=== PATIENT | female | born 1950 | race Caucasian/White ===

== ENCOUNTER 2025-03-04 20:26 | Inpatient (IN) | payer MEDICARE, OTHER, SELFPAY ==
[2025-03-04] VITALS (8 sets, daily range): BP systolic 117–159; BP diastolic 67–89; BMI 25.0
[2025-03-04 18:59] LABS: Glucose - Point of Care 491 mg/dl (70-99)
[2025-03-04] MEDS: NSS 1000 IV (19:14)
--- NOTE | 2025-03-04 19:17 | ED.GENMED ---
History of Present Illness
General
Chief Complaint: Blood Sugar Problem
Source: patient
Exam Limitations: none
Time Seen by Provider: 03/04/25 19:04
Nursing documentation reviewed up to this point in time: agreed with
History of Present Illness
History of Present Illness:
74 yo female with no significant PMHX presents with excessive thirst and concerns about high blood glucose levels. She reports that her symptoms started with fatigue, slowly around Easter and progressively worsened. The patient notes being 'very,
very thirsty' and believes her blood glucose levels are 'off the charts,' based on recent lab work initiated by a nurse practitioner named Kelsey, a friend of the family. The patient also reports feeling breathless with exertion but denies
experiencing chest pain or trouble breathing at rest. She has not experienced any nausea or vomiting. She reports constipation for the past few days, with the last bowel movement occurring approximately three days ago. She usually experiences bowel
movements daily. Denies abdominal pain.
She has had polydipsia and polyuria.
Past History
Past History
ED Past Medical History: None
ED Past Surgical History: Appendectomy
Social History
Tobacco: Non-smoker
Alcohol: None
Personal: Single
Living: with family
Review of Systems
Review of Systems
Allergies reviewed?: Yes
All Other Systems: ROS reviewed and negative except as documented in HPI and ROS
Constitutional: Reports fatigue; Denies fever
Respiratory: Reports other (gets short of breath with exertion); Denies cough
Cardiac: Denies chest pain
ABD/GI: Reports constipated; Denies abdominal pain, nausea, vomiting or diarrhea
: Reports frequency; Denies dysuria
Musculoskeletal: Reports no symptoms
Skin: Reports no symptoms
Neurological: Reports no symptoms
Endocrine: Reports polyuria and polydipsia
Phy Exam
Physical Exam
Physical Exam:
GENERAL: No acute distress. A&Ox3.
CONSTITUTIONAL: Afebrile.
EYES: clear, conjunctivae normal
ENMT: moist mucus membranes, Pharynx nl
RESPIRATORY: Regular respirations, nonlabored, lungs clear.
CARDIOVASCULAR: Regular rate and rhythm, no murmurs, no rubs.
GI: Soft, nontender, normal BS
MUSCULOSKELETAL: Moves with ease. Well perfused.
SKIN: Warm, dry, pink
PSYCH: Normal mood and affect. Well kept, interactive and appropriate
NEUROLOGIC: Awake, alert and oriented. No focal neurological deficits
Course
Orders/Labs/Results
Orders:
Orders
03/04/25 Breakfast
NPO
Allow oral meds: Yes
Allow clear liquids: Sips of Clears
03/04/25 19:05
Bedside Glucose- Treatment Q1H
IV Insert/Care/Rem.- Treatment PRN
0.9% Sodium Chloride 1000 ml [Nss] 1,000 ml IV BOLUS
03/04/25 19:11
Urinalysis Urgent
Date Specimen was Collected: 03/04/25
Time Specimen was Collected: 19:08
Urine Microscopic Urgent
Date Specimen was Collected: 03/04/25
Time Specimen was Collected: 19:08
03/04/25 19:12
B-Hydroxybutyrate Urgent
Basic Metabolic Panel Q2H
Complete Blood Count/With Diff Urgent
Glycohemoglobin (HgbA1c) Urgent
03/04/25 19:15
Bedside Glucose- Treatment Q1H
IV Insert/Care/Rem.- Treatment PRN
03/04/25 19:20
Venous Blood Gas Urgent
%Oxygen/Room Air: Room air
03/04/25 19:58
Potassium Chloride [KCl] 40 meq PO NOW STA
03/04/25 19:59
Bedside Glucose- Treatment Q1H
03/04/25 20:00
IV Insert/Care/Rem.- Treatment PRN
03/04/25 20:01
Electrocardiogram (*1) Urgent
Reason for Study: Other
Other Reason for Exam: New onset diabetes, KCL IV and Insulin
EKG- Treatment ONCE
03/04/25 20:03
Potassium Chloride [KCl] 40 meq 0.9% Sodium Chloride 250 ml [Nss] 250 ml IV NOW
Reg Insulin 100 Units/100 ml [Novolin R Insulin Infusion] 100 units in 100 ml IV NOW
03/04/25 20:08
CefTRIAXone [Rocephin] 1,000 mg IV NOW STA
03/04/25 20:11
Admit/Transfer Patient As Directed
Co-Sign Provider:
Level of Care: Inpatient admission
Assign to:: ICU
Physician / Group: Earnest
Diagnosis: DKA
Reason for Hospitalization: DKA
Expected length of stay greater than two midnights?: Yes
ELOS- Estimated Length of Stay in days: 2
I certify the patient meets the requirements for IP care: Yes
PRN Pain Medication Management As Directed
May give lesser potent ordered pain med per pt: Yes
preference::
Protocol:: Medication orders for pain may be administered in a
manner that supports deferring to patient preference
when the pt is:
- Requesting an ordered lesser potent pain medication.
Least to most potent pain medications are defined
as: acetaminophen < NSAID < tramadol < opioids
(morphine, oxycodone, hydromorphone).
- Requesting a lesser dose of the same medication IF
ORDERED.
- Requesting a less intrusive route of administration
if both routes are prescribed by the provider (PO <
IV).
03/04/25 20:12
Code Status As Directed
Resuscitation Status: Full Code
03/04/25 20:27
Glucose Stat
03/04/25 21:09
Acetaminophen [Tylenol] 650 mg PO Q4HPRN PRN
KCl 20 Meq/0.9%Sodchl 1000 ml [NSS with KCL 20 MEQ] 20 meq in 1,000 ml IV 150 mls/hr
Ondansetron Injectable [Zofran] 4 mg IV Q6HPRN PRN
Reg Insulin 100 Units/100 ml [Novolin R Insulin Infusion] 100 units in 100 ml IV PER PROTOCOL
Currently infusing. Continue current dose and titrate:: Yes
03/04/25 21:09
Activity As Directed
Activity Level: Ambulate
With Assistance
Bedside Glucose Monitoring As Directed
Frequency: Q1H
EKG with chest pain [ECG as needed] As Directed
ECG as needed for:: Chest Pain
I/O [Intake/ Output] As Directed
Frequency: Per unit guidelines
Notify MD As Directed
Notify physician if: Nurse to contact provider when glucose reaches 250 to obtain orders for D5 0.45 NaCl
Vital Signs As Directed
Frequency: Per unit guidelines
Weight As Directed
Frequency: Daily
Oxygen Therapy [O2 Therapy] [RESP] Routine
Titrate/Wean O2 to maintain O2 sat greater than (%): 94
DX Deep Vein Thrombosis Video Routine
03/05/25 00:00
Basic Metabolic Panel Q4
03/05/25 04:00
Basic Metabolic Panel Q4
03/05/25 06:00
Complete Blood Count/No Diff IN AM
03/05/25 08:00
Basic Metabolic Panel Q4
03/05/25 12:00
Basic Metabolic Panel Q4
03/05/25 16:00
Basic Metabolic Panel Q4
03/05/25 18:00
Enoxaparin Sodium [Lovenox] 40 mg SC QPM
03/05/25 20:00
Basic Metabolic Panel Q4
Abnormal Lab Results
03/04/25 03/04/25 03/04/25
18:46 19:11 19:12
MCH 31.5 H pg
(27.0-31.0)
MPV 11.5 H fL
(7.4-10.4)
Abs Immat Gran (auto) 0.1 H 10^3/uL
(0-0.05)
Absolute Lymphs (auto) 1.1 L 10^3/uL
(1.2-3.4)
Absolute Monos (auto) 0.7 H 10^3/uL
(0.1-0.6)
Immature Gran % 0.8 H %
(0-0.5)
Lymphocytes % 17.6 L %
(20.5-51.1)
Monocytes % 10.6 H %
(1.7-9.3)
VBG pH
VBG pCO2
VBG HCO3
Sodium 132 L mmol/L
(135-145)
Carbon Dioxide 11 L* mmol/L
(22-30)
BUN 5 L mg/dl
(7-17)
Creatinine 0.5 L mg/dL
(0.6-1.0)
Glucose 501 H* mg/dl
(70-99)
Urine Ketones 3+ A
(Negative)
Urine Occult Blood 1+ A
(Negative)
Ur Leukocyte Esterase 3+ A
(Negative)
Urine WBC 70-80 A /HPF
(0-5)
Urine Bacteria Moderate A
(Negative)
Urine Glucose 4+ A
(Negative)
B-Hydroxybutyrate 6.20 H mmol/L
(0.02-0.27)
POC Glucose 491 H* mg/dl
(70-99)
03/04/25 03/04/25
19:20 20:21
MCH
MPV
Abs Immat Gran (auto)
Absolute Lymphs (auto)
Absolute Monos (auto)
Immature Gran %
Lymphocytes %
Monocytes %
VBG pH 7.21 L
(7.32-7.43)
VBG pCO2 31 L mmHg
(35-48)
VBG HCO3 12.4 L mmol/L
(22-27)
Sodium
Carbon Dioxide
BUN
Creatinine
Glucose
Urine Ketones
Urine Occult Blood
Ur Leukocyte Esterase
Urine WBC
Urine Bacteria
Urine Glucose
B-Hydroxybutyrate
POC Glucose 437 H mg/dl
(70-99)
03/04/25 19:12
03/04/25 20:00
Vital Signs
Initial and Last Documented VS:
Initial Vital Signs
Temp Pulse Resp BP Pulse Ox
98.7 F 79 16 159/89 99
03/04/25 18:44 03/04/25 18:44 03/04/25 18:44 03/04/25 18:44 03/04/25 18:44
Last Documented Vital Signs
Temp Pulse Resp BP Pulse Ox
98.8 F 72 17 121/74 96
03/04/25 23:04 03/04/25 23:45 03/04/25 23:45 03/04/25 23:00 03/04/25 23:45
Reptile Farmer consulted with Physician
Reptile Farmer consulted with physician?: Yes
Name of Physician Consulted: Sarah
MDM/Problems Addressed
Differential Diagnosis Includes:
The Differential Diagnosis includes, in no particular order and is not limited to:
1. Diabetes Mellitus
2. Hyperosmolar Hyperglycemic State
3. Diabetes Insipidus
4. Dehydration
5. Urinary tract infection
6. Medication-induced hyperglycemia
7. Hyperthyroidism
8. Adrenal insufficiency
9. Chronic Kidney Disease
10. Pancreatitis
MDM/Problems Addressed:
74 yo female with no significant PMHX presents with excessive thirst and concerns about high blood glucose levels. She reports that her symptoms started with fatigue, slowly around Easter and progressively worsened. The patient notes being 'very,
very thirsty' and believes her blood glucose levels are 'off the charts,' based on recent lab work initiated by a nurse practitioner named Kelsey, a friend of the family. The patient also reports feeling breathless with exertion but denies
experiencing chest pain or trouble breathing at rest. She has not experienced any nausea or vomiting. She reports constipation for the past few days, with the last bowel movement occurring approximately three days ago. She usually experiences bowel
movements daily. Denies abdominal pain.
She has had polydipsia and polyuria.
Afebrile, NAD
Plan:
1. Administer intravenous fluids to address dehydration.
2. Monitor serum potassium levels before administering insulin.
3. Once potassium levels are confirmed to be normal, initiate insulin therapy to manage hyperglycemia.
4. Check VBG
7:40 p.m.
CBC with no clinically significant abnormality
VBG: pH 7.21 CO2 31, bicarb 12.4
Bicarb 11
Diagnosis: DKA
8:10 p.m.
U/A with 70-80 WBCs 3+leukocytes Rocephin ordered. Culture pending
Hospitalist notified of admission
Pt informed of results and plan.
Critical care statement: A total of 40 minutes of critical care time was provided for this patient. This includes management of unstable vital signs, evaluation of the patient at bedside, reviewing the patient's pertinent medical records, discussion
with consultants, review of old EKGs and review of pertinent medical records. This time with separate from time utilized to perform the aforementioned documented procedures
*Pulse Oximetry
SaO2: 100
Oxygen Mode of Delivery: Room air
Patient hypoxic: not evaluated
*Critical Care Note
Total Time (30-74mins, 75-104mins- exclusive of procedures): Not Applicable
ED Attending Note
-
Portions of this chart may have been created with voice recognition software.� Occasional wrong word or��sound alike� substitutions may have occurred due to the inherent limitations of voice recognition software.
Discharge Plan
Departure
Patient Disposition: Admit
Date of Disposition: 03/04/25
Time of Disposition: 20:02
Presentation/result/management discussed w/ accepting MD/DO: Hospitalist
Condition: Fair
Discharge Problem:
New onset type 2 diabetes mellitus, DKA (diabetic ketoacidosis)
Interventions
Interventions:
*Risk Screen - Suicide Last Done: 03/04/25 18:44
*General Assessment Last Done: 03/04/25 18:56
*Neglect/Abuse Screening Last Done: 03/04/25 18:44
*ED- Fall Risk Assessment Last Done: 03/04/25 18:56
*ED COVID-19 Vaccine History Last Done: 03/04/25 18:56
*Nursing Disposition Last Done: 03/04/25 21:19
ED- Neurological Assessment Last Done: 03/04/25 18:56
Discharge Date and Time
Discharge Date/Time: 03/04/25 21:20
[2025-03-04 19:19] LABS: Hematocrit 39.2 % (37.0-47.0); Hemoglobin 13.8 g/dL (12.0-16.0); Mean Corp Hgb Conc. 35.2 g/dL (33.0-37.0); Mean Corpuscular Volume 89.5 fL (81.0-99.0); Nucleated Red Blood Cells % 0 %; Platelet Count 212 10^3/uL (130-400); Red Cell Dist. Width 13.7 % (11.5-14.5)
[2025-03-04 19:25] LABS: Urine Character Clear (Clear)
[2025-03-04 19:33] LABS: Venous Blood Gas B.E. -14.2 mmol/L (-4 to +4); Venous Blood Gas O2 Sat % 76.7 %
[2025-03-04 19:41] LABS: Blood Urea Nitrogen 5 mg/dl (7-17); Calcium 9.5 mg/dl (8.4-10.2); Carbon Dioxide 11 mmol/L (22-30); Chloride 103 mmol/L (98-107); Estimated Creatinine Clearance 71 ml/min; Glucose 501 mg/dl (70-99); Potassium 3.7 mmol/L (3.5-5.1); Sodium 132 mmol/L (135-145); eGFR > 60.00
[2025-03-04 19:41] LABS: Urine Red Blood Cell 0-2 /HPF (0-2); Urine Squamous Cell 16-20 /LPF (Few); Urine White Cell 70-80 /HPF (0-5)
[2025-03-04 20:23] LABS: Glucose - Point of Care 437 mg/dl (70-99)
[2025-03-04] MEDS: KCL 40 MEQ PO (20:26)
[2025-03-04] MEDS: KCL 270 MEQ IV (20:28)
--- NOTE | 2025-03-04 20:28 | HPS.HSE ---
Family Physician
-
Family Physician: Pranav Lopez
Chief Complaint
-
Weight Loss, Fatigue, Abnormal Labs
History of Present Illness
Patient is a 74y F with no known PMH who presents to ED for evaluation of weight loss, fatigue and abnormal labs. Patient states that she has felt 'lousy' for about 2-3 months. She reports polyuria, polydipsia, weight loss and fatigue. Patient
spoke with a friend who is a medical provider and they provided her a Rx for outpatient labs. Those labs resulted today and were markedly abnormal and patient was advised to present to the ED for further evaluation. At the time of my examination
she complains of mild headache and dry mouth. She denies any chest pain, dyspnea, abdominal pain or N/V.
Medical History
Past Medical History
Past Medical History: Reports None
Past Surgical History: Reports None
Social History
Tobacco: Non-smoker
Alcohol: None
Drug: None
Family History
Family History: Not pertinent
Allergies / Home Medications
Allergies reflects when Allergies were last updated in [facility].
Home Medications with original date entered in [facility]
Allergy/Medication List:
Allergies
Allergy/AdvReac Type Severity Reaction Status Date / Time
prednisone Allergy Unknown Verified 03/04/25 19:01
Home Medications
multivitamin with minerals-folic acid 120 mcg chewable tablet (Vitafusion Women's Multi) 2 tab PO DAILYPRN PRN vitamin 03/04/25
Review of Systems
-
History Source: Patient
A 12 point ROS was completed and negative except as noted: Yes
Constitutional: Reports Weight Loss and Fatigue; Denies Fever or Chills
EENT: Denies Sore Throat
Respiratory: Denies Cough or Trouble Breathing
Cardiac: Denies Chest Pain or Palpitations
Abdomen/GI: Denies Abdominal Pain, Nausea, Vomiting or Diarrhea
: Reports Frequency; Denies Dysuria or Flank Pain
Musculoskeletal: Denies Joint Pain or Edema
Neurological: Reports Headache; Denies Dizzy
Endocrine: Reports Polyuria and Polydipsia
Psych: Denies Depression or Anxiety
Physical Exam
Vital Signs
Vital Signs
Temp Pulse Resp BP Pulse Ox
98.7 F 76 19 152/78 100
03/04/25 18:44 03/04/25 19:15 03/04/25 19:15 03/04/25 19:00 03/04/25 19:24
Physical Exam
General: Other (74y F in no acute distress.)
HEENT: PERRLA and Other (Dry MM.)
Respiratory: Clear; No Wheezes, Rales or Rhonchi
Cardiac: S1/S2 and Regular Rhythm; No Murmur
GI: Soft, Non Tender, Non Distended and Normal Bowel Sounds
Musculoskeletal: No Clubbing, No Cyanosis and No Edema
Neuro: AO x 3
Laboratory Results
-
03/04/25 19:12
Impression/Plan
-
A/P: Patient is an 74y F with no known PMH who presents to ED for evaluation of weight loss, fatigue and abnormal labs.
DKA
New Diagnosis of DM-II
Hypokalemia
- Admit to ICU for further evaluation and treatment.
- Initial labs with glucose = 501, anion gap = 18 (23 on outpatient labs), pH = 7.21.
- IV insulin infusion. IVFs.
- Follow glucose hourly and adjust fluids / insulin as needed.
- Follow labs q 4 hours and transition to subcut insulin once anion gap is normalized.
- Replace potassium (PO and IV given in the ED). Continue IVFs with potassium.
- Follow labs / lytes and provide replacement as needed.
- Eventual diabetic teaching, nutrition, etc prior to discharge.
- A1C on outpatient labs was > 15.5.
- TFTs on outpatient labs were unremarkable.
Possible UTI
- Patient does complain of urinary symptoms (though likley due to hyperglycemia).
- UA with WBCs and bacteria.
- Continue ceftriaxone pending culture data.
DVT Prophylaxis: Lovenox
Code Status: Full
[2025-03-04] MEDS: ROCEPHIN 1000 MG IV (20:30)
[2025-03-04] MEDS: NOVOLIN R INSULIN INFUSION 100 IV (20:37)
[2025-03-04 20:54] LABS: Glucose 413 mg/dl (70-99)
[2025-03-04 21:30] LABS: Glucose - Point of Care 295 mg/dl (70-99)
[2025-03-04] MEDS: NSS with KCL 20 MEQ 1000 IV (21:45)
--- NOTE | 2025-03-04 22:00 | PTCARENOTE ---
rec`d pt at 2200 from ED on insulin gtt. q1h BS checks continued. AAox3 pt states she as baseline equilibrium issues, bed alarm placed. uses a 1 point cane at home. RA. bedpan. PIVS flushed and patent. insulin gtt titrated per order. pt`s son at
bedside. call suero in reach, safe environment maintained.
[2025-03-04 22:47] LABS: Glucose - Point of Care 238 mg/dl (70-99)
[2025-03-04] MEDS: D5/0.45%NSS with KCL 20 MEQ 1000 IV (23:40)
[2025-03-04 23:52] LABS: Glucose - Point of Care 194 mg/dl (70-99)
[2025-03-05] VITALS (16 sets, daily range): BP systolic 97–128; BP diastolic 41–72; BMI 24.6
[2025-03-05 00:45] LABS: Glucose - Point of Care 214 mg/dl (70-99)
--- NOTE | 2025-03-05 01:00 | PTCARENOTE ---
pt reports being unsteady on her feet at baseline. pt has to urinate but wont use a bedpan. Pt states, ' I rather hold my pee then pee in a bedpan.'
[2025-03-05 01:45] LABS: Glucose - Point of Care 204 mg/dl (70-99)
[2025-03-05 03:09] LABS: Glucose - Point of Care 197 mg/dl (70-99)
[2025-03-05 03:35] LABS: Hematocrit 31.7 % (37.0-47.0); Hemoglobin 11.4 g/dL (12.0-16.0); Mean Corp Hgb Conc. 36.0 g/dL (33.0-37.0); Mean Corpuscular Volume 88.5 fL (81.0-99.0); Platelet Count 163 10^3/uL (130-400); Red Cell Dist. Width 13.5 % (11.5-14.5)
[2025-03-05 03:53] LABS: Blood Urea Nitrogen 5 mg/dl (7-17); Calcium 8.2 mg/dl (8.4-10.2); Carbon Dioxide 16 mmol/L (22-30); Chloride 115 mmol/L (98-107); Estimated Creatinine Clearance 71 ml/min; Glucose 184 mg/dl (70-99); Potassium 3.6 mmol/L (3.5-5.1); Sodium 135 mmol/L (135-145); eGFR > 60.00
[2025-03-05 04:17] LABS: Glucose - Point of Care 181 mg/dl (70-99)
[2025-03-05 05:17] LABS: Glucose - Point of Care 184 mg/dl (70-99)
[2025-03-05] MEDS: D5/0.45%NSS with KCL 20 MEQ 1000 IV (05:48)
--- NOTE | 2025-03-05 05:58 | PTCARENOTE ---
OOB to bedside commode and then to chair w/ 1x assist.
[2025-03-05 06:16] LABS: Glucose - Point of Care 182 mg/dl (70-99)
[2025-03-05 07:03] LABS: Glucose - Point of Care 182 mg/dl (70-99)
--- NOTE | 2025-03-05 07:11 | CON.INTV ---
Addendum entered and electronically signed by Aubree Calderón MD 03/05/25 12:04:
Patient being started on subcu insulin and IV insulin and IV fluids being transitioned off.
- Patient stable for transfer out of ICU
- Cylinder Machine Operator service will sign off, please call as needed
Original Note:
Consultation
Consultation Request
Date/Time Consultation Requested: March 05, 2025
Date/Time Consultation Performed: March 05, 2025
Medical History
-
Chief Complaint: increased thirst, urination
History of Present Illness:
78 yo F no significant PMH complaining of polydipsia, polyuria, fatigue and presented to the ED.
ED course n/f labs 7.2, Na+ 132, K+ 3.7, serum bicarbonate 11, glucose 501, BHB 6.2, anion gap 18. ABG showed 7.2. She received 1L NS and 1L NS with KCl, was started on an insulin drip and then admitted to the ICU.
This morning, she reports feeling well. Endorses polydipsia, polyuria but denies dysuria, cough, chest pain, dyspnea, or abdominal pain. She also denies nausea or vomiting. She is currently receiving D5/1/2NS/KCl infusion.
She has no significant PMH, and this has never happened before.
Past History
ED Past Medical History: None
ED Past Surgical History: Appendectomy
Social History
Tobacco: Non-smoker
Alcohol: None
Personal: Single
Living: with family
Allergies / Home Medications
Allergies
Allergy/AdvReac Type Severity Reaction Status Date / Time
prednisone Allergy Chest pain Verified 03/04/25 20:58
Home Medications
�Medication �Instructions �Recorded �Confirmed �Last Taken �Type
multivitamin with minerals-folic 2 tab PO DAILYPRN PRN vitamin 03/04/25 03/04/25 03/04/25 History
acid 120 mcg chewable tablet
(Vitafusion Women's Multi)
Review of Systems
-
History Source: Patient
Constitutional: No Symptoms
EENT: No Symptoms
Respiratory: No Symptoms
Cardiac: No Symptoms
Abdomen/GI: Other (denies nausea or vomiting)
: Other (denies dysuria)
Musculoskeletal: No Symptoms
Skin: No Symptoms
Neuro: Other (denies dizziness or headache)
Endocrine: Polyuria and Polydidsia
Hematologic/Lymphatic: No Symptoms
Vitals / Labs / Diagnostic Testing
Vital Signs
Temp Pulse Resp BP Pulse Ox
98.2 F 78 20 109/62 97
03/05/25 03:14 03/05/25 06:15 03/05/25 06:15 03/05/25 06:00 03/05/25 05:30
Lab Data
03/05/25 03:23
Labs:
Na+ 135
K+ 3.6
Bicarbonate 16
Blood glucose 184
Anion gap 4
Diagnostic Testing:
UA + for WBC and leukocyte esterase
Physical Exam
-
HEENT: Normocephalic
Cardiovascular: Regular Rhythm, Other (no murmurs) and Other (trace lower extremity edema bilaterally)
Respiratory: Clear
GI: Non Tender
Neurology: AO x 3 and No Motor Deficits
Skin: Warm and Dry
General: Comfortable
Assessment
-
In summary, this is a 74 yo F presenting with polydipsia, polyuria, fatigue found to be in metabolic acidosis with ketones and elevated blood glucose most concerning for diabetic ketoacidosis.
# Diabetic ketoacidosis
- ABG acidosis, elevated anion gap, decreased bicarbonate, elevated beta-hydroxybutyrate c/w ketoacidosis
- After fluid administration and starting insulin, the DKA has resolved: anion gap has closed, serum bicarbonate has increased, blood glucose < 250, electrolyes within normal limits
- She denies nausea/vomiting which suggests that she can tolerate PO intake
- Advance to drinking water, f/u BMP, and consider transition to subq insulin with follow-up labs before stopping IV fluids and IV insulin drip
- Consult diabetic team because new onset diabetes mellitus
#? urinary tract infection
- UA + for WBC and leukocyte esterase c/w UTI.
- However, patient denies symptoms (dysuria, urgency)
- Infection may be a trigger for DKA, consider continuing antibiotics
# General
- DVT ppx: lovenox
Recommendations are not final until attg attestation
Data Reviewed
-
EKG: Report reviewed by me
--- NOTE | 2025-03-05 08:10 | PTCARENOTE ---
Assumed care of pt at 0715 following shift report. Pt received sitting OOB in chair. Pts only c/o bilateral knee 'ache' that she reports is 'usual' for her. Declined offered Tylenol. Repositioned in reclining chair w/ reported improvement in
discomfort. Insulin gtt and IVF infusing as ordered per DKA protocol. Pt remains NPO. Physical assessment completed as documented. Comfort care/hygiene provided. Call suero w/in pt reach and pt verbalized understanding to call and wait for staff
assistance before getting out of chair.
[2025-03-05 08:18] LABS: Glucose - Point of Care 178 mg/dl (70-99)
[2025-03-05 09:00] LABS: Blood Urea Nitrogen 6 mg/dl (7-17); Calcium 7.9 mg/dl (8.4-10.2); Carbon Dioxide 17 mmol/L (22-30); Chloride 113 mmol/L (98-107); Estimated Creatinine Clearance 71 ml/min; Glucose 447 mg/dl (70-99); Potassium 5.3 mmol/L (3.5-5.1); Sodium 130 mmol/L (135-145); eGFR > 60.00
[2025-03-05 09:12] LABS: Glycohemoglobin (HgbA1c) 17.0 % (4.0-5.6)
[2025-03-05 09:23] LABS: Glucose - Point of Care 207 mg/dl (70-99)
[2025-03-05] MEDS: OMNIPAQUE 50 ML PO (10:07)
[2025-03-05 10:16] LABS: ALT (SGPT) 13 U/L (0-35); AST (SGOT) 16 U/L (14-36); Albumin 3.0 g/dl (3.5-5.0); Alkaline Phosphatase 89 U/L (38-126); Total Protein 5.4 g/dl (6.3-8.2)
[2025-03-05 10:23] LABS: Triglycerides 154 mg/dl (10-149)
[2025-03-05 10:34] LABS: Glucose - Point of Care 205 mg/dl (70-99)
[2025-03-05 10:39] LABS: ALT (SGPT) 14 U/L (0-35); AST (SGOT) 16 U/L (14-36); Albumin 3.1 g/dl (3.5-5.0); Alkaline Phosphatase 95 U/L (38-126); Blood Urea Nitrogen 6 mg/dl (7-17); Calcium 8.4 mg/dl (8.4-10.2); Carbon Dioxide 17 mmol/L (22-30); Chloride 114 mmol/L (98-107); Estimated Creatinine Clearance 71 ml/min; Glucose 194 mg/dl (70-99); Potassium 3.6 mmol/L (3.5-5.1); Sodium 134 mmol/L (135-145); Total Protein 5.7 g/dl (6.3-8.2); eGFR > 60.00
--- NOTE | 2025-03-05 10:51 | PN.DE.MGMTRT ---
Insulin Management
- -
03/05/2025 Diabetes Management Consult
Patient admitted 03/04 with weight loss, fatigue, abnormal labs, frequent urination, and thirst. PMH none noted. Taking no medications. A1C on admission 17%, Cr .4, eGFR >60.
Patient is awake alert and oriented able to discuss diabetes care. States she had no idea she had diabetes, admits she has not seen a doctor sine January 2023.
GAP has closed, will transition from IV insulin to SC insulin. Will start lantus 15 units now then drip off 2 hours after administered. Will start 4 units novolog AC with low corrective and 1600 calorie diet.
Diabetes Nurse has provided and educated on glucose monitor and insulin prep and administration.
Patient to self administer insulin injections with nursing supervision.
Discussed with nurse.
Will follow.
Diabetes History
- -
Type of Diabetes: 2 requiring insulin
Pre-Admission Diabetes Regimen
03/04/25 03/04/25 03/04/25
19:12 20:00 21:15
Creatinine 0.5 L Cancelled Cancelled
03/04/25 03/04/25 03/05/25
22:00 23:15 00:00
Creatinine Cancelled Cancelled Cancelled
03/05/25 03/05/25 03/05/25
03:23 08:17 09:58
Creatinine 0.4 L 0.4 L 0.4 L
Lab Results
Hemoglobin A1c 17.0 % (4.0-5.6) H 03/04/25 19:12
Insulin Pump Settings
IP Diabetes Regimen
03/04/25 03/04/25 03/04/25
18:46 19:12 20:00
Glucose 501 H* Cancelled
POC Glucose 491 H*
03/04/25 03/04/25 03/04/25
20:21 20:27 21:15
Glucose 413 H Cancelled
POC Glucose 437 H
03/04/25 03/04/25 03/04/25
21:18 22:00 22:35
Glucose Cancelled
POC Glucose 295 H 238 H
03/04/25 03/04/25 03/05/25
23:15 23:41 00:00
Glucose Cancelled Cancelled
POC Glucose 194 H
03/05/25 03/05/25 03/05/25
00:34 01:34 02:58
Glucose
POC Glucose 214 H 204 H 197 H
03/05/25 03/05/25 03/05/25
03:23 04:05 05:05
Glucose 184 H
POC Glucose 181 H 184 H
03/05/25 03/05/25 03/05/25
06:05 06:52 08:08
Glucose
POC Glucose 182 H 182 H 178 H
03/05/25 03/05/25 03/05/25
08:17 09:12 09:58
Glucose 447 H 194 H
POC Glucose 207 H
03/05/25
10:23
Glucose
POC Glucose 205 H
Meal type: Breakfast
Patient Education
[2025-03-05] MEDS: KCL 20 MEQ PO (11:05)
--- NOTE | 2025-03-05 11:11 | PTCARENOTE ---
03/05/2025
I met with Asuncion to review diabetes management. She is newly diagnosed with diabetes, was admitted with DKA.
I educated on physiology of T2D, organ damage, managing with medications, monitoring BG, nutrition, activity, sleep and managing stress. I reinforced signs of hyperglycemia, hypoglycemia and hypoglycemia protocol; BS parameters and recommended HbA1c
goals, glucometer instructions, CGM resources, glucose tracker, medic alert bracelet and outpatient DSME program. Written material provided.
I educated and reviewed using Contour Next glucometer, member acknowledged understanding with a self demonstration of checking BS. Provided patient with a Contour Next sample kit.
Asuncion is now on an insulin drip, mentioned that she may be discharged with new medications such as insulin.
I educated and demonstrated on insulin injection technique, timing, and storage. Discussed long and short acting insulin; onset/peak/duration. Will revisit patient closer to discharge and review diabetes medications again. Discussed normal
target glucose ranges for fasting and 2 hours post prandial.
Encouraged patient to follow up with her PCP for post d/c appointment and to monitor medication and blood glucose levels. Provided list of endocrinologists if desired, to contact insurance company to verify in network status. Requested
prescription sent to pharmacy for test strips and lancets for back up SMBG. Patient verbalized understanding.
[2025-03-05 11:15] LABS: Glucose - Point of Care 210 mg/dl (70-99)
[2025-03-05] MEDS: LANTUS 0.15 UNITS SC (11:33)
--- NOTE | 2025-03-05 11:42 | CM ---
Initial assessment completed with patient whose adult son lives with her in a 3 story plus basement home with B/B on 2nd and full bath on 1st, 5 steps to enter. 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 DME in home is [facility] and [facility]. She uses [facility] on occasion if she feels unsteady. No in-home services. No service. No HC-POA. PCP is Dr. Lars Lopez. Pharmacy is [facility] on [address] [facility] in [place]. Discharge POC: TBD with medical workup and medical
progression.
[2025-03-05 11:46] LABS: Lipase 47 U/L (23-300)
--- NOTE | 2025-03-05 12:10 | PTCARENOTE ---
Pt remains sitting OOB in chair. No new complaints or changes note from previous assessment findings. Oral contrast started at [address] abd/pelvis. Tolerating w/o complication. Continuing to adjust Insulin gtt based on AccuCheck results
per ordered parameters. Pt ambulated to BR to void w/ use of cane- gait steady. Supervision provided.
[2025-03-05 12:39] LABS: Glucose - Point of Care 188 mg/dl (70-99)
--- NOTE | 2025-03-05 13:19 | W.PN.HOSP.TC ---
Addendum entered and electronically signed by Clark Horta MD 03/05/25 16:32:
DKA, new onset diabetes
Transition to subcutaneous insulin once anion gap closed x 2 start diet
Will need diabetes education
Will need diabetes management consultation
Will need insulin on discharge
CT abdomen pelvis with contrast/oral to assess for pancreatic mass
-Completed without acute findings however atrophic in appearance. Outpatient elective MRI Abdomen/Pelvis Contrast to rule out pancreatic PNET type lesion
Original Note:
Today's Communication/Plan
-
Glucose is normalizing and anion gap closed. Continue IVF's, insulin GTT, and potassium for now, transitioning to subcutaneous insulin with repeat labs.
Diabetes management and education to assist with transition to subcutaneous insulin.
Ceftriaxone discontinued, as patient has asymptomatic bacteriuria. Patient remains afebrile without leukocytosis.
Continue to monitor clinical status.
Assessment / Plan
Assessment / Plan
Patient is a 74-year-old female with no known past medical history who presented to the [facility] emergency department for evaluation of weight loss, fatigue, polyuria, polydipsia, and abnormal outpatient labs. Lab work in the hospital
revealed a glucose of 501, anion gap of 18 (23 on outpatient labs), and a pH of 7.21. The patient was diagnosed with diabetic ketoacidosis and admitted to the ICU for further evaluation and treatment.
#Diabetic ketoacidosis
#Diabetes mellitus type 2 (new diagnosis)
Labs on presentation: Glucose 501, K 3.7, HCO3 12.4, pCO2 31, A1c 17.0, anion gap 18, beta hydroxybutyrate elevated, urine ketones 3+
Started on IV insulin, IVF's, and potassium to maintain normal levels
Labs today: Glucose 184, K 3.6, anion gap 4 (closed)
Given unusual onset of DMII and patient's age, additional workup warranted:
- CTAP pending
If glucose and anion gap remained stable on additional labs, transition patient to normal diet and subcutaneous insulin
Diabetes management education consult given new diagnosis of DMII
#Asymptomatic bacteriuria
Patient presented with urinary complaint of polyuria
No urinary complaints today, including dysuria, frequency, hematuria, polyuria
UA on presentation: Positive for LE, WBCs, moderate bacteria, glucose, and ketones
Patient was initially treated with ceftriaxone for possible UTI given her polydipsia and abnormal UA
Patient continues to be afebrile with no leukocytosis
Given lack of urinary symptoms (other than polydipsia explained by DKA), we will discontinue ceftriaxone
#Anemia
Hgb 11.4, decreased from 13.8 on presentation
Suspected etiology is hemo-dilutional, as this patient has received copious IVF's
Monitor H&H, clinical status
DVT PPx: Lovenox
CODE STATUS: Full
Anticipated Discharge: 24 - 48 hours
Subjective/Interval History
-
Date of Service: March 05, 2025
Patient is seen while sitting in a chair on hospital day #2. Nursing reports NAEO. Patient states she feels 'better, clear in the head.' Reports she is dry and fatigued, but otherwise good.
Objective Data
-
Labs:
Laboratory Results
03/05/25 03/05/25 03/05/25
00:00 03:23 08:17
WBC 5.6
Hgb 11.4 L
Hct 31.7 L
Plt Count 163 D
Sodium Cancelled 135 130 L
Potassium Cancelled 3.6 5.3 H D
Chloride Cancelled 115 H 113 H
Carbon Dioxide Cancelled 16 L 17 L
BUN Cancelled 5 L 6 L
Creatinine Cancelled 0.4 L 0.4 L
Glucose Cancelled 184 H 447 H
Calcium Cancelled 8.2 L 7.9 L
Total Bilirubin 0.5
AST 16
ALT 13
Alkaline Phosphatase 89
03/05/25
09:58
WBC
Hgb
Hct
Plt Count
Sodium 134 L
Potassium 3.6 D
Chloride 114 H
Carbon Dioxide 17 L
BUN 6 L
Creatinine 0.4 L
Glucose 194 H
Calcium 8.4
Total Bilirubin 0.5
AST 16
ALT 14
Alkaline Phosphatase 95
Vital Signs:
Vital Signs
Temp Pulse Resp BP Pulse Ox
97.6 F 66 15 109/61 97
03/05/25 11:26 03/05/25 10:00 03/05/25 10:00 03/05/25 10:00 03/05/25 08:05
I&O
03/04/25 03/05/25 03/06/25
06:59 06:59 06:59
Intake Total 1219 / 1371 456 / 456
Output Total 750 / 750
Balance 469 / 621 456 / 456
Review of Systems
-
History Source: Patient
Constitutional: Reports Weight Loss (Recent 15 pound weight loss over the last 2 to 3 months) and Fatigue; Denies Fever or Chills
EENT: Reports Other (Dry mouth)
Respiratory: Denies Cough, Trouble Breathing or Wheezing
Cardiac: Denies Chest Pain, Palpitations or Syncope
Abdomen/GI: Denies Abdominal Pain, Nausea, Vomiting or Diarrhea
Genitourinary: Reports Other (Denies current polyuria, hematuria); Denies Dysuria, Frequency or Urgency
Musculoskeletal: Denies Edema
Skin: Reports Other (Dry skin)
Neuro: Denies Headache, Weakness, Numbness or Lightheadedness
Endocrine: Reports Polydipsia (None currently, though it was reported on presentation); Denies Polyuria (None currently, though it was reported on presentation)
Physical Exam
-
General: Well Developed, Well Nourished, No Apparent Distress, Comfortable and Conversant; Negative Respiratory Distress, Pain, Fever, Chills or Obese
HEENT: Normocephalic, Atraumatic and Other (Dry mucous membranes)
Respiratory: Clear to Auscultation and Non Labored Respirations; Negative Wheezes, Crackles or Accessory Resp Muscle Use
Cardiac: Regular Rhythm and S1/S2; Negative Murmur, Rub, Gallop, Tachycardic or Bradycardic
GI: Soft, Nontender and Normal Bowel Sounds
Musculoskeletal: No Cyanosis and No Edema
Skin: Warm and Dry; Negative Normal Turgor (Somewhat poor skin turgor, appears dry)
Neuro: AO x 3, No Motor Deficits and No Sensory Deficits; Negative Slurred Speech
Psych: Calm
--- NOTE | 2025-03-05 13:35 | CM ---
Transferring to Room # 409-2.
--- NOTE | 2025-03-05 13:45 | PTCARENOTE ---
Addendum entered by Cindy Mejia RN 03/05/25 15:39:
Prior to leaving unit, pt called and placed order for lunch- to be delivered following CT Abd. (pt presently NPO per protocol for ordered CT Abd). Call placed by this RN to pharmacy asking them to send missing Insulin pen to [facility]. Receiving nurse
(Angela) notified of outstanding Insulin coverage for ordered meal.
Original Note:
Transfer report given to PEDRAZA (Angela) on [facility]E. Insulin gtt/IVF off at 1330. manager monitoring removed after pt downgraded to M/S level of care. Pt informed family of plans to transfer [address] scan via stretcher for ordered CT abd. No changes
noted or new complaints received prior to transfer.
[2025-03-05 13:50] LABS: Glucose - Point of Care 159 mg/dl (70-99)
[2025-03-05 15:30] LABS: Glucose - Point of Care 157 mg/dl (70-99)
[2025-03-05] MEDS: NOVOLOG FLEXPEN 4 UNITS SC ×2 (15:39→17:37)
[2025-03-05] MEDS: NOVOLOG FLEXPEN-LOW RESISTANCE 1 UNITS SC (15:39)
[2025-03-05 17:29] LABS: Glucose - Point of Care 343 mg/dl (70-99)
[2025-03-05] MEDS: NOVOLOG FLEXPEN-LOW RESISTANCE 4 UNITS SC (17:37)
[2025-03-05] MEDS: LOVENOX 40 MG SC (17:38)
[2025-03-05 21:29] LABS: Glucose - Point of Care 226 mg/dl (70-99)
[2025-03-06 06:00] VITALS: BMI 25.6
[2025-03-06 07:17] VITALS: BP 111/63
[2025-03-06 07:32] LABS: Glucose - Point of Care 232 mg/dl (70-99)
[2025-03-06 07:52] LABS: Hematocrit 35.8 % (37.0-47.0); Hemoglobin 12.4 g/dL (12.0-16.0); Mean Corp Hgb Conc. 34.6 g/dL (33.0-37.0); Mean Corpuscular Volume 90.2 fL (81.0-99.0); Nucleated Red Blood Cells % 0 %; Platelet Count 173 10^3/uL (130-400); Red Cell Dist. Width 14.4 % (11.5-14.5)
[2025-03-06 08:17] LABS: Blood Urea Nitrogen 5 mg/dl (7-17); Calcium 8.7 mg/dl (8.4-10.2); Carbon Dioxide 21 mmol/L (22-30); Chloride 109 mmol/L (98-107); Estimated Creatinine Clearance 71 ml/min; Glucose 251 mg/dl (70-99); Potassium 3.5 mmol/L (3.5-5.1); Sodium 134 mmol/L (135-145); eGFR > 60.00
--- NOTE | 2025-03-06 08:21 | PN.DE.MGMTRT ---
Insulin Management
- -
03/06/2025 Diabetes Management Consult Follow up
Patient admitted 03/04 with weight loss, fatigue, abnormal labs, frequent urination, and thirst. PMH none noted. Taking no medications. A1C on admission 17%, Cr .4, eGFR >60.
Patient is awake alert and oriented able to discuss diabetes care. States she had no idea she had diabetes, admits she has not seen a doctor sine January 2023.
03/05 GAP has closed transitioned from IV insulin to SC insulin. Glucose 226 @ HS.
03/06 Fasting glucose 232. Will increase AM lantus to 20 units and AC novolog to 7 units with low corrective insulin. Pre lunch glucose 252, will increase AC novolog to 10 units.
Diabetes Nurse has provided and educated on glucose monitor and insulin prep and administration. Patient states she feels confident with injecting insulin and testing glucose.
Patient to self administer insulin injections with nursing supervision.
Discussed with nurse.
Will follow.
Diabetes History
- -
Type of Diabetes: 2 requiring insulin
Pre-Admission Diabetes Regimen
03/05/25 03/05/25 03/05/25
09:58 12:00
Creatinine 0.4 L 0.4 L Cancelled
03/05/25 03/05/25 03/06/25
16:00 20:00 07:23
Creatinine Cancelled Cancelled 0.5 L
Lab Results
Hemoglobin A1c 17.0 % (4.0-5.6) H 03/04/25 19:12
Insulin Pump Settings
IP Diabetes Regimen
03/05/25 03/05/25 03/05/25
08: 09:12 09:58
Glucose 447 H 194 H
POC Glucose 207 H
03/05/25 03/05/25 03/05/25
10:23 11:03 12:00
Glucose Cancelled
POC Glucose 205 H 210 H
03/05/25 03/05/2525
12:28 13:38 15:29
Glucose
POC Glucose 188 H 159 H 157 H
03/05/25 03/05/25 03/05/25
16:00 17:28 20:00
Glucose Cancelled Cancelled
POC Glucose 343 H
03/05/25 03/06/25 03/06/25
21:28 07:23 07:30
Glucose 251 H
POC Glucose 226 H 232 H
Meal type: Lunch
Amount consumed: 100%
Patient Education
[2025-03-06] MEDS: LANTUS SC (08:54)
[2025-03-06] MEDS: NOVOLOG FLEXPEN-LOW RESISTANCE 2 UNITS SC (08:55)
[2025-03-06] MEDS: NOVOLOG FLEXPEN 7 UNITS SC (09:01)
[2025-03-06] MEDS: NOVOLOG FLEXPEN SC (10:27)
[2025-03-06] MEDS: LANTUS 0.2 UNITS SC (10:29)
--- NOTE | 2025-03-06 10:38 | W.PN.HOSP.TC ---
Addendum entered and electronically signed by Clark Horta MD 03/07/25 22:48:
dm teaching
asking for apper insulin scripts because she wants to shop around
informed her on rounds that she will need reepat abd imaging with MRI to r/o pneyt lesion, she verbalized understanding
Read, reviewed, and agree. See same day progress note for additional details. Time spent coordinating care, DC planning, review of DC plan of care with resident, transition of care, review of records in EMR, med rec, consults, notes, d/w
consultants, nursing, family, and CM 33mins
Original Note:
Today's Communication/Plan
-
Patient's volume status has improved, with her sugars generally well-controlled overall on new subcutaneous insulin regimen initiated yesterday.
Patient continues to have no urinary complaints, thus no antibiotic treatment is warranted for asymptomatic bacteriuria.
Plan to discharge to home on insulin regimen with education by diabetes management team for new diagnosis of type 2 diabetes..
Assessment / Plan
Assessment / Plan
Patient is a 74-year-old female with no known past medical history who presented to the [facility] emergency department for evaluation of weight loss, fatigue, polyuria, polydipsia, and abnormal outpatient labs. Lab work in the hospital
revealed a glucose of 501, anion gap of 18 (23 on outpatient labs), and a pH of 7.21. The patient was diagnosed with diabetic ketoacidosis and admitted to the ICU for further evaluation and treatment.
#Diabetic ketoacidosis (resolved)
#Diabetes mellitus type 2 (new diagnosis)
Labs on presentation: Glucose 501, K 3.7, HCO3 12.4, pCO2 31, A1c 17.0, anion gap 18, beta hydroxybutyrate elevated, urine ketones 3+
Initially started on IV insulin, IVF's, and potassium to maintain normal levels
Patient was started on a subcutaneous insulin regimen per per diabetes management team yesterday, tolerating it well
Labs today: Glucose 251, K 3.5, anion gap 4 (closed)
Given unusual onset of DMII and patient's age, additional workup warranted:
- CTAP: No pancreatic mass found. Atrophic pancreas. Elective MRI recommended if any concern for PNET lesion. Patient recommended to follow-up with MRI outpatient.
Diabetes management education provided to patient given new diagnosis of DMII
#Asymptomatic bacteriuria
Patient presented with urinary complaint of polyuria
Patient continues to deny urinary complaints, including dysuria, frequency, polyuria
UA on presentation: Positive for LE, WBCs, moderate bacteria, glucose, and ketones
Patient was initially treated with ceftriaxone for possible UTI given her polydipsia and abnormal UA
Patient continues to be afebrile with no leukocytosis
Given lack of urinary symptoms (other than polydipsia explained by DKA), no antibiotics warranted
#Anemia (resolved)
Hgb 12.4, resolved from 11.4 yesterday
Suspected etiology was hemo-dilutional, as this patient has received copious IVF's for treatment of DKA
Monitor H&H, clinical status
DVT PPx: Lovenox
CODE STATUS: Full
Anticipated Discharge: Today
Subjective/Interval History
-
Date of Service: March 06, 2025
Patient seen at the bedside on hospital day #3. Patient states she feels 'better, more energy.' Patient states she feels more hydrated than yesterday, though she does still feel a little bit dry. She is urinating without issue and no longer feels
the 'compulsion' to drink fluids like she did in the last couple days. Amenable to discharge home.
Objective Data
-
Labs:
Laboratory Results
03/05/25 03/06/25
20:00 07:23
WBC 5.5
Hgb 12.4
Hct 35.8 L
Plt Count 173
Sodium Cancelled 134 L
Potassium Cancelled 3.5
Chloride Cancelled 109 H
Carbon Dioxide Cancelled 21 L
BUN Cancelled 5 L
Creatinine Cancelled 0.5 L
Glucose Cancelled 251 H
Calcium Cancelled 8.7
Vital Signs:
Vital Signs
Temp Pulse Resp BP Pulse Ox
98.2 F 75 16 111/63 97
03/06/25 07:17 03/06/25 07:17 03/06/25 07:17 03/06/25 07:17 03/06/25 07:17
I&O
03/05/25 03/06/25 03/07/25
06:59 06:59 06:59
Intake Total 1219 / 1371 2266
Output Total 750 / 750
Balance 469 / 621 2266
Review of Systems
-
History Source: Patient
Constitutional: Reports Other (Still feels a bit dry overall, though improving); Denies Fever, Fatigue or Chills
EENT: Reports Other (Mildly dry mouth)
Respiratory: Denies Cough, Trouble Breathing or Wheezing
Cardiac: Denies Chest Pain, Palpitations or Syncope
Abdomen/GI: Denies Abdominal Pain, Nausea, Vomiting or Diarrhea
Genitourinary: Denies Dysuria, Frequency or Difficulty Voiding
Musculoskeletal: Denies Edema
Skin: Reports No Symptoms
Neuro: Denies Headache, Weakness, Numbness or Lightheadedness
Endocrine: Denies Polyuria, Polydipsia or Excessive Thirst
Physical Exam
-
General: Well Developed, Well Nourished, No Apparent Distress, Comfortable and Conversant; Negative Pain
HEENT: Normocephalic and Atraumatic
Respiratory: Clear to Auscultation and Non Labored Respirations; Negative Wheezes or Crackles
Cardiac: Regular Rhythm and S1/S2; Negative Murmur, Rub, Gallop, Tachycardic or Bradycardic
GI: Soft, Nontender and Normal Bowel Sounds
Musculoskeletal: No Cyanosis and No Edema
Skin: Warm, Dry and Other (Skin turgor improving since yesterday, still mildly dry appearing)
Neuro: AO x 3, No Motor Deficits and No Sensory Deficits
Psych: Calm
--- NOTE | 2025-03-06 11:04 | PTCARENOTE ---
03/06/2025
I met with Asuncion to review Novolog and Lantus insulin. I provided education on checking glucose before each meal, take Novolog 15 minutes before a meal, peak action and duration. I educated her to take Lantus once daily at approximately the
same time, onset of action, duration, and mechanism of action. I also assisted Asuncion with another repeat demonstration of insulin injection procedure, provided RN with insulin pen needles and encouraged assistance with her injecting next dose
with his supervision.
Asuncion has not seen her PCP in 2 years, resident from the [facility] entered room and stated that they could see her shortly after discharge if she desires to visit this practice. Provided her with their phone #. Patient
verbalized understanding.
[2025-03-06 12:06] LABS: Glucose - Point of Care 252 mg/dl (70-99)
[2025-03-06] MEDS: NOVOLOG FLEXPEN 10 UNITS SC (12:56)
[2025-03-06] MEDS: NOVOLOG FLEXPEN-LOW RESISTANCE 3 UNITS SC (12:56)
--- NOTE | 2025-03-06 13:42 | CM ---
Patient stable for d/c today. Patient w/ new diabetes dx, insulin dependent.
Patient requesting paper scripts so she can shop around for affordable prices for her 2 insulins. Discussed [facility] discounted program as an option, patient prefers paper scripts and shop around herself
Daughter will transport home
IMM verbally reviewed, copy provided, copy on chart
No CM needs at this time
Plan: Home, no needs
[2025-03-06 15:52] VITALS: BP 115/71
--- NOTE | 2025-03-06 17:44 | W.DCSUMMARY ---
Discharge Summary
Discharge Data
Date of Admission: 03/04/25
Date of Discharge: 03/06/25
-
Pending Results: No
Hospital Course
Discharging Physician : Christiano Bagley MD; Clark Horta MD
Disposition : Home
Primary care physician : Pranav Lopez MD
Principal Discharge diagnosis : Diabetic ketoacidosis; Type 2 diabetes mellitus; asymptomatic bacteriuria
Chronic Discharge diagnosis : N/A
Hospital Course : Ms. Ceballos is a 74-year-old female with no known past medical history who presented to the [facility] emergency department for evaluation of weight loss, fatigue, polyuria, polydipsia, and abnormal outpatient labs. Lab
work completed in the hospital on presentation revealed a glucose of 501, anion gap of 18 (23 on outpatient labs), HCO3 of 12.4, a pH of 7.21, elevated beta hydroxybutyrate, urine ketones, and a hemoglobin A1c of 17.0. Based on the patient's
symptoms and these lab values, the patient was diagnosed with diabetic ketoacidosis and and admitted to the ICU for further evaluation and treatment. The patient was also diagnosed with new onset type 2 diabetes. The patient was administered IV
insulin, IV fluids, and potassium to treat her DKA, improve her volume status, and maintain normal electrolyte levels. On day 2 of her hospital course, Ms. Ceballos's symptoms of fatigue, polyuria, and polydipsia were improving, and lab work showed
a glucose of 251, potassium 3.5, and an anion gap of 4 (closed gap). With these values indicating successful treatment of her DKA, the patient was transition to a subcutaneous insulin regimen per the diabetes management team, which she tolerated
well. The patient's glucose values were maintained within an acceptable range thereafter. Due to the abnormal nature of new-onset type 2 diabetes at the patient's age, a CT abdomen pelvis was obtained. This study showed an atrophic pancreas
overall, but no findings to confirm a pancreatic mass. Due to some clinical concern for a PNET type lesion, patient is recommended to follow-up outpatient with an MRI of her abdomen for complete evaluation. The patient was educated on her new
insulin regimen, which is detailed elsewhere in this discharge report. The patient was then medically cleared for discharge to home. She is recommended to follow up with her current PCP or at the [facility] in [place] for
establishment of primary care within 1 week. She is also recommended to follow up with endocrinology for further evaluation and management of her new diagnosis of type 2 diabetes mellitus.
Due to the patient's reported polydipsia and a urinalysis positive for leukocyte esterase, white blood cells, and moderate bacteria, the patient was also initially treated with ceftriaxone for possible UTI. However, the patient was afebrile with no
leukocytosis, denied any urinary symptoms other than polydipsia, and her polydipsia was explained by her diabetic ketoacidosis, thus her condition was treated as asymptomatic bacteriuria. Accordingly, no antibiotics were no longer warranted and the
ceftriaxone was discontinued.
Important imaging findings :
CT Abdomen/Pelvis (03/05/25) - IMPRESSION:
1. Mild hepatomegaly versus Dez's lobe configuration.
2. No findings to confirm pancreatic mass, pancreas overall somewhat atrophic in appearance. If there is a clinical concern for a PNET type lesion, consider elective MRI for more complete evaluation.
3. Distal colonic diverticulosis.
4. Large volume stool filling the rectum.
Procedure findings : N/A
Discharge Plan
-
Patient Disposition: Home (Routine Discharge)
Discharge Diagnosis/Procedures: Diabetic ketoacidosis; Type 2 diabetes mellitus; asymptomatic bacteriuria
Condition: Good
Diet: Diabetic, Carb Controlled
Activity: As tolerated
Driving Restrictions: As prior to admission
Bathing Restrictions: None
Others Tests: Follow-up MRI abdomen for further evaluation of possible PNET given new-onset type 2 diabetes mellitus
Activity Restrictions/Additional Instructions:
Follow up with [facility] in [place] for establishment of primary care within 1 week - [phone]
Follow up with endocrinology for further evaluation of new diagnosis of type 2 diabetes mellitus
Follow-up MRI abdomen for further evaluation of possible PNET given new-onset type 2 diabetes mellitus
Referrals:
Pranav Lopez MD [Family Provider]
Additional Discharge Medication Instructions: Start insulin glargine 20 units subcutaneous injection daily at 9AM
Start insulin lispro 7 units subcutaneously before meals
Prescriptions:
New
(DME) Contour Next Test Strips Strip
Qty: 200 1RF
Rx Instructions:
Test 4 times per day before each meal and HS As Directed
(DME) lancets [Color Lancets] 21 gauge Misc
Qty: 200 1RF
Rx Instructions:
Test 4 times per day before each meal and HS As Directed
insulin lispro [Humalog KwikPen Insulin] 100 unit/mL Insulin Pen
7 unit SC AC Qty: 5 1RF
insulin glargine [Lantus Solostar U-100 Insulin] 100 unit/mL (3 mL) Insulin Pen
20 unit SC DAILY@0900 Qty: 5 1RF
(DME) pen needle, diabetic [Norah 2nd Gen Pen Needle] 32 gauge x 5/32' Needle
Qty: 200 1RF
Rx Instructions:
For use with prefilled pen needles As Directed 4 times per day
Continued
multivit with min-folic acid [Vitafusion Women's Multi] 120 mcg Tablet,Chewable
2 tab PO DAILYPRN PRN (Reason: vitamin)
Patient Comments:
03/04/2025, pt. takes whenever she remembers to take it.
Discharge Orders:
Discharge Patient (As Directed); Ordered 03/06/25
Ordered By: Clark Horta
Discharge Date and Time
Discharge Date/Time: 03/06/25 16:10
Print Language: WELSH
== END 2025-03-06 16:10 | disposition home or self-care (01) | DRG 638 ==
LOC: 4 EAST ACU 20:26
PROVIDERS: Registered Nurse; ADMITTING PHYSICIAN Hospitalist; ATTENDING PHYSICIAN Hospitalist; EMERGENCY PHYSICIAN Emergency Medicine; FAMILY PHYSICIAN Internal Medicine; OTHER PHYSICIAN Internal Medicine
DX: E11.10 Type 2 diabetes mellitus with ketoacidosis without coma (principal); N39.0 Urinary tract infection, site not specified; E86.0 Dehydration; K57.30 Diverticulosis of large intestine without perforation or abscess without bleeding; Z79.4 Long term (current) use of insulin; Z88.8 Allergy status to other drugs, medicaments and biological substances; D64.9 Anemia, unspecified
CPT/HCPCS: 74178; 80048; 80053; 81003; 81015; 82010; 82248; 82805; 82947; 82962; 83036; 83690; 84478; 85025; 85027; 93005; 96361; 96365; 96375; 99291; Q9967